=== PATIENT | female | born 1985 | race Caucasian/White ===

== ENCOUNTER 2025-02-15 14:27 | Outpatient (AMB) | payer OTHER, SELFPAY ==
--- NOTE | 2025-02-15 14:29 | A.OFFVIS_ITS ---
Vital Signs 02/15/25 14:39 Height 5 ft 3 in Weight 198 lb BMI 35.1 BP 156/98 H Blood Pressure Location Rt brachial Position Sitting Pulse 84 Pulse Source Pulse Oximeter Pulse Oximetry (%) 98 Oxygen Delivery Method Room Air Intake Visit Reasons: Gastroesophageal reflux disease (GERD) Intake Note: New pt for initial consult for GERD. Current PPI therapy. CC; C.O. GERD + Nausea. Pt states that she has been trialing PPI therapy which has been effective. However, she cannot ever come off of the medication without experiencing immediate reflux. 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 Patient was sent to us by her PCP for evaluation of her ongoing reflux. Patient started taking omeprazole and reports that her symptoms are better. However patient states that if she is not taking the medication she will have acid reflux. Patient reports occasional dyspepsia without dysphagia or odynophagia. Patient reports when severe reflux she is waking up with nausea. Patient reports certain food affect her more than others. Patient is trying not to eat late at night. [facility] Medical History (Updated 02/22/25 @ 11:49 by Keena Scruggs RN) Carpal tunnel syndrome Attention deficit Anxiety GERD (gastroesophageal reflux disease) Surgical History H/O section Review of Systems Const Denies weight gain and Denies weight loss ENT Reports no additional complaints, Denies dysphagia and Denies odynophagia Card Reports no additional complaints Resp Reports no additional complaints GI Denies abdominal pain, Denies belching, Denies melena, Denies bloating, Denies change in bowel habits, Denies dysphagia, Denies excessive flatus, Reports dyspepsia, Reports heartburn, Denies diarrhea, Denies loose stools, Denies nausea, Denies odynophagia and Denies vomiting Reports no additional complaints Musc Reports no additional complaints Neuro Reports no additional complaints Psych Reports no additional complaints Endo Reports no additional complaints Physical Exam Vital Signs: Last Vital Signs Pulse 84 02/15/25 14:39 BP 156/98 H 02/15/25 14:39 Pulse Ox 98 02/15/25 14:39 Oxygen Delivery Method Room Air 02/15/25 14:39 BMI result Body Mass Index 35.1 Const General: healthy appearing, no acute distress and well developed Nutritional Appearance: well nourished Orientation/consciousness: patient oriented x3 Resp Effort & Inspection: normal respiratory effort, able to speak in complete sentences, no tracheal deviation and symmetric chest movement Auscultation: clear to auscultation bilaterally Cardio Rate: regular rate GI Inspection: Yes normal to inspection and No distended Palpation (GI): Soft to palpation, not firm, nontender and No hepatosplenomegaly present Auscultation: normal bowel sounds General: Yes no CVA tenderness Back/Spine/Pelvis Back: no CVA tenderness Skin General skin exam: elasticity normal, turgor normal and dry skin Neuro General: patient oriented x3 Psych Appearance: grossly normal Mental Status: mental status grossly normal Assessment & Plan Assessment & Plan (1) GERD (gastroesophageal reflux disease): Code(s): K21.9 - Gastro-esophageal reflux disease without esophagitis Qualifiers: Esophagitis presence: esophagitis presence not specified Qualified Code(s): K21.9 - Gastro-esophageal reflux disease without esophagitis (2) Postprandial epigastric pain: Code(s): R10.13 - Epigastric pain (3) Postprandial abdominal bloating: Code(s): R14.0 - Abdominal distension (gaseous) (4) Nausea: Code(s): R11.0 - Nausea Plan Patient will be sent for upper endoscopy to rule out gastritis, esophagitis, duodenitis, gastric or peptic ulcer. Will check lipase, vitamin B12, folate, vitamin-D level. Will also check transglutaminase to rule out celiac. Will do breath test for H pylori in couple weeks. Patient will hold omeprazole will start her on famotidine. Patient is agreeable to current plan of care verbalizes understanding of instructions. She was given the opportunity to ask questions and all questions answered. Thank you for allowing me to participate in her care Orders: Orders Lipase 02/15/25 R10.9 - Unspecified abdominal pain Vitamin B12 and Folate 02/15/25 R19.7 - Diarrhea, unspecified Vitamin D 25-OH (D2 and D3) 02/15/25 E55.9 - Vitamin D deficiency, unspecified H Pylori Breath Test 02/15/25 K21.9 - Gastro-esophageal reflux disease without esophagitis Transglutaminase IgA 02/15/25 R10.9 - Unspecified abdominal pain Medications: New famotidine (Pepcid) 20 mg PO BID 30 tabs 0RF K29.70 - Gastritis, unspecified, without bleeding Coding Level of Care Code New Pt Level 3 (05270) Diagnoses Gastroesophageal reflux disease, unspecified whether esophagitis present K21.9 Esophagitis presence: esophagitis presence not specified Postprandial epigastric pain R10.13 Postprandial abdominal bloating R14.0 Nausea R11.0 Time Spent (min) 40 Comment 30 minutes spent with patient and additional 10 minutes spent reviewing her records
[2025-02-15 14:39] VITALS: BP 156/98; PULSE 84; O2SAT 98; BMI 35.1
== END 2025-02-15 15:04 | disposition home or self-care (01) ==
LOC: HO.HGI 14:28
PROVIDERS: PCP Family Medicine; Visit Provider Nurse Practitioner Family
DX: K21.9 Gastro-esophageal reflux disease without esophagitis (principal); R10.13 Epigastric pain; R14.0 Abdominal distension (gaseous); R11.0 Nausea
CPT/HCPCS: 99203

== ENCOUNTER → 2025-02-15 14:27 | Outpatient (BNVA) | payer OTHER, SELFPAY | PROVIDERS: PCP Family Medicine; Visit Provider Nurse Practitioner Family | DX: K21.9 Gastro-esophageal reflux disease without esophagitis (principal); R10.13 Epigastric pain; R14.0 Abdominal distension (gaseous); R11.0 Nausea; E55.9 Vitamin D deficiency, unspecified; R19.7 Diarrhea, unspecified | CPT/HCPCS: 99202 ==

== ENCOUNTER 2025-02-24 09:49 | Day surgery (SDC) | payer OTHER, SELFPAY ==
[2025-02-22 11:52] VITALS: BMI 36.3
[2025-02-24 10:54] LABS: UPreg QC Valid YES
[2025-02-24] MEDS: Lactated Ringers 1,000 ML 100 ML IVCONT (11:01)
[2025-02-24 11:02] VITALS: BP 130/91; PULSE 90; RESP 12; TEMP 36.7; O2SAT 98; BMI 33.9
--- NOTE | 2025-02-24 11:06 | HO.ANESPROP2 ---
Documented by User: Tonya Peterson NP 02/23/25 12:27 HPI - Anesthesia Eval Consult details Narrative: 39yo F for Upper Endoscopy [facility] Past Medical History Medical History (Updated 02/22/25 @ 11:49 by Keena Scruggs RN) Carpal tunnel syndrome Attention deficit Anxiety GERD (gastroesophageal reflux disease) Surgical History Surgical History H/O section Social History Social History Are you a primary post acute care nurse practitioner to a significant other at home: No Do you presently have visiting nurse or other home services: No Patient Tobacco Use Status: Never used Tobacco Use of substances other than those prescribed or required for medical reasons: No Advance Directives: No Advance Directives Information Provided: Yes Patient : No FDLMP: 01/27/2025 : No Poor oral hygiene: No Meds Allergies Allergy/AdvReac Type Severity Reaction Status Date / Time amoxicillin Allergy Severe Anaphylaxis Verified 02/24/25 10:48 acetaminophen (From Vicodin) AdvReac Unknown Vomiting Verified 02/24/25 10:48 hydrocodone (From Vicodin) AdvReac Unknown Vomiting Verified 02/24/25 10:48 Home Medications ?Medication ?Instructions ?Recorded ?Confirmed ?Last Taken ?Type omeprazole 20 mg capsule,delayed 20 mg PO DAILY 02/11/25 02/24/25 Unknown History release bupropion HCl 300 mg 24 hr tablet, 300 mg PO QAM 02/15/25 02/24/25 Unknown History extended release levonorgestrel-ethinyl estradiol 1 tab PO DAILY 02/15/25 02/24/25 Unknown History 0.1 mg-20 mcg tablet (Lessina) Exam Height,Weight and Vital Signs: Height 5 ft 3.39 in Weight 94 kg Assessment and Plan Assessment Anesthesia Assessment: Chart Reviewed Documented by User: Pao Rothman DO 02/24/25 11:09 [facility] Past Medical History Medical History (Updated 02/22/25 @ 11:49 by Keena Scruggs RN) Carpal tunnel syndrome Attention deficit Anxiety GERD (gastroesophageal reflux disease) Family History Family history of problems with anesthesia: No Surgical History Surgical History H/O section History of Problems with Anesthesia: No Social History Social History Are you a primary post acute care nurse practitioner to a significant other at home: No Do you presently have visiting nurse or other home services: No Patient Tobacco Use Status: Never used Tobacco Use of substances other than those prescribed or required for medical reasons: No Advance Directives: No Advance Directives Information Provided: Yes Patient : No FDLMP: 01/27/2025 : No Poor oral hygiene: No Meds Allergies Allergy/AdvReac Type Severity Reaction Status Date / Time amoxicillin Allergy Severe Anaphylaxis Verified 02/24/25 10:48 acetaminophen (From Vicodin) AdvReac Unknown Vomiting Verified 02/24/25 10:48 hydrocodone (From Vicodin) AdvReac Unknown Vomiting Verified 02/24/25 10:48 Home Medications ?Medication ?Instructions ?Recorded ?Confirmed ?Last Taken ?Type omeprazole 20 mg capsule,delayed 20 mg PO DAILY 02/11/25 02/24/25 Unknown History release bupropion HCl 300 mg 24 hr tablet, 300 mg PO QAM 02/15/25 02/24/25 Unknown History extended release levonorgestrel-ethinyl estradiol 1 tab PO DAILY 02/15/25 02/24/25 Unknown History 0.1 mg-20 mcg tablet (Lessina) Exam Exam Date and Time: 02/24/25 1108 Height,Weight and Vital Signs: Height 5 ft 3.39 in Weight 94 kg Vital Signs Temperature 98.0 F 02/24/25 11:02 Pulse Rate 90 02/24/25 11:02 Respiratory Rate 12 02/24/25 11:02 Blood Pressure 130/91 H 02/24/25 11:02 Pulse Oximetry 98 02/24/25 11:02 Temperature 98.0 F 02/24/25 11:02 Pulse Rate 90 02/24/25 11:02 Respiratory Rate 12 02/24/25 11:02 Blood Pressure 130/91 H 02/24/25 11:02 Pulse Oximetry 98 02/24/25 11:02 Airway Mallampati Class: II TM Dist: >3cm Neck ROM: Full Loose/Missing/Broken Teeth: No (patient denies any loose or broken teeth) Heart: S1S2 Lungs: CTAB Assessment and Plan Assessment Anesthesia Assessment: Anesthesia Plan Discussed and Chart Reviewed Final Anesthetic Review Family History of Problems with Anesthesia: No History of Problems with Anesthesia: No NPO: Yes ASA Class: II Final Preanesthetic Review: No Changes in Pt Med Stat, Meds/Allgs Chart Reviewed, Consent Obtained/Reviewed and Anes Risks/Benef Reviewed Patient Risk: Low Procedure Risk: Low Anesthetic Plan Anesthetic Plan: MAC: and Agree w/ Assess. and Plan Disposition: Standard PACU
--- NOTE | 2025-02-24 11:23 | MHC.SHP ---
Pre-Procedural Eval Section A - 24 Hr Update-Section A only Date of Service: 02/24/25 The patient is an INPATIENT: No The patient has been examined within 24 hours of the surgical procedure. The History & Physical has been completed within 30 days and I have reviewed it.: Yes Section B - Complete if H&P > 30 days Chief Complaint: gerd, Allergies: Allergies Allergy/AdvReac Type Severity Reaction Status Date / Time amoxicillin Allergy Severe Anaphylaxis Verified 02/24/25 10:48 acetaminophen (From Vicodin) AdvReac Unknown Vomiting Verified 02/24/25 10:48 hydrocodone (From Vicodin) AdvReac Unknown Vomiting Verified 02/24/25 10:48 Plan Diagnosis/Plan: Unchanged I have reviewed the history and physical and performed a pertinent physical examination on my patient. No changes have occurred unless specified. Time Spent With Patient Time: Total time managing care of this patient today ____ minutes.
--- NOTE | 2025-02-24 12:24 | P.OP_ITS ---
Operative Note Operative Note Date of Service: 02/24/25 Narrative: Procedure: Esophagogastroduodenoscopy Endoscopist: Alisa Castaneda MD Indication: Post prandial abd pain, GERD Anesthesia Provider: Dr Pao Rothman Anesthesia Type: MAC ?? EGD Procedure:?? The procedure, indications, preparation and potential complications were reviewed with the patient, who indicated understanding and gave written informed consent to proceed. A physical exam was performed. The endoscope was introduced through the mouth, and advanced to the second part of duodenum. The mucosa was carefully examined on slow withdrawal of the endoscope. The patient tolerated the procedure well. There were no immediate complications.? ? EGD Findings:? * Esophagus:? Normal mucosa noted in the entire esophagus. The Z line was at 34 cm and displaced by hiatal hernia with the diaphragmatic pinch at 37 cm. The Z-line was irregular up to 33 cm with small erosions measuring < 5 mm. GE junction biopsies were taken rule out Barretts esophagus. A tissue Cypher will also be sent if pathology positive for Nassar's esophagus. * Stomach:? Mild edema and scant heme in the antrum. Retroflexion was performed in the cardia that showed Hill grade 3 hiatal hernia. Cold forceps biopsies were taken from the gastric body and antrum. * Duodenum:? Edema, erythema and erosions noted in the duodenal bulb. Cold forceps biopsies were taken from duodenal bulb and second portion of the duodenum to rule out celiac sprue. ? EGD Impressions:? * Grade A esophagitis * Irregular Z line (biopsy, tissue cypher) * Hiatal hernia * Gastritis (biopsy) * Duodenitis (biopsy) ?? Recommendations:?? * Follow biopsy results. Our office will call or send a letter with results within 7-10 days. * Stop omeprazole and pepcid * Start rabeprazole 20 mg once daily * Consider barium swallow for evaluation of hiatal hernia * If H pylori +, patient will be prescribed eradication therapy followed by test of cure. * Avoid NSAIDs. Above has been reviewed with the patient.
[2025-02-24 12:27] VITALS: BP 132/91; PULSE 105; RESP 18; TEMP 36.7; O2SAT 96
[2025-02-24 12:35] VITALS: BP 138/95; PULSE 83; RESP 18; TEMP 36.6; O2SAT 97
[2025-02-24 12:47] VITALS: BP 130/84; PULSE 91; RESP 18; TEMP 36.4; O2SAT 97
== END 2025-02-24 13:21 | disposition home or self-care (01) ==
PROVIDERS: Anesthesiology; PCP Family Medicine; Visit Provider Internal Medicine
PROC: 0DJ08ZZ Inspection of Upper Intestinal Tract, Via Natural or Artificial Opening Endoscopic (ICD-10-PCS; CPT 43235; principal; 2025-02-24 12:00)
DX: K21.9 Gastro-esophageal reflux disease without esophagitis (principal); K20.80 Other esophagitis without bleeding; K22.9 Disease of esophagus, unspecified; K29.70 Gastritis, unspecified, without bleeding; K29.80 Duodenitis without bleeding; Q39.8 Other congenital malformations of esophagus; K44.9 Diaphragmatic hernia without obstruction or gangrene; E55.9 Vitamin D deficiency, unspecified; Z79.899 Other long term (current) drug therapy
CPT/HCPCS: 43239; 81025; 88305; 88313; 88342; J2003; J2704

== ENCOUNTER → 2025-02-24 09:49 | Outpatient (BNV) | payer OTHER, SELFPAY | PROVIDERS: PCP Family Medicine; Visit Provider Internal Medicine | DX: K21.00 Gastro-esophageal reflux disease with esophagitis, without bleeding (principal); R10.13 Epigastric pain; K22.89 Other specified disease of esophagus; K29.70 Gastritis, unspecified, without bleeding; K29.80 Duodenitis without bleeding | CPT/HCPCS: 43239 ==

== ENCOUNTER 2025-03-09 09:46 | Outpatient (AMB) | payer OTHER, SELFPAY ==
--- NOTE | 2025-03-09 09:50 | A.OFFVIS_ITS ---
Vital Signs 03/09/25 09:53 Height 5 ft 4 in Weight 196 lb BMI 33.6 BP 112/74 Blood Pressure Location Rt brachial Position Sitting Pulse 88 Pulse Source Pulse Oximeter Pulse Oximetry (%) 99 Oxygen Delivery Method Room Air Intake Visit Reasons: s/p EGD Leonel Intake Note: Est pt for mgmt of GERD. Review HP + EGD results. Review next EGD 06/2025. CC; Pt denies any GI sx or concerns at this time. Pt confirms that she is still taking her Rx as instructed w/o complication. Hospital Pharmacy Technician Required: No Accompanied by: Self / Same As Patient Allergies amoxicillin Allergy (Severe, Verified 03/09/25 09:50) Anaphylaxis acetaminophen (From Vicodin) Adverse Reaction (Unknown, Verified 03/09/25 09:50) Vomiting hydrocodone (From Vicodin) Adverse Reaction (Unknown, Verified 03/09/25 09:50) Vomiting HPI HPI s/p EGD Leonel: Details: LAST VISIT: GERD (gastroesophageal reflux disease) Postprandial epigastric pain Postprandial abdominal bloating Nausea Plan Patient will be sent for upper endoscopy to rule out gastritis, esophagitis, duodenitis, gastric or peptic ulcer. Will check lipase, vitamin B12, folate, vitamin-D level. Will also check transglutaminase to rule out celiac. Will do breath test for H pylori in couple weeks. Patient will hold omeprazole will start her on famotidine. Patient is agreeable to current plan of care verbalizes understanding of instructions. She was given the opportunity to ask questions and all questions answered. ? Thank you for allowing me to participate in her care Orders Lipase 02/15/25 R10.9 Vitamin B12 and Folate 02/15/25 R19.7 Vitamin D 25-OH (D2 and D3) 02/15/25 E55.9 H Pylori Breath Test 02/15/25 K21.9 Transglutaminase IgA 02/15/25 R10.9 New famotidine (Pepcid) 20 mg PO BID 30 tabs 0RF K29.70 UPPER ENDOSCOPY EGD Findings:? * Esophagus:? Normal mucosa noted in the entire esophagus. The Z line was at 34 cm and displaced by hiatal hernia with the diaphragmatic pinch at 37 cm. The Z-line was irregular up to 33 cm with small erosions measuring < 5 mm. GE junction biopsies were taken rule out Barretts esophagus. A tissue Cypher will also be sent if pathology positive for Nassar's esophagus. * Stomach:? Mild edema and scant heme in the antrum. Retroflexion was performed in the cardia that showed Hill grade 3 hiatal hernia. Cold forceps biopsies were taken from the gastric body and antrum. * Duodenum:? Edema, erythema and erosions noted in the duodenal bulb. Cold forceps biopsies were taken from duodenal bulb and second portion of the duodenum to rule out celiac sprue. ? EGD Impressions:? * Grade A esophagitis * Irregular Z line (biopsy, tissue cypher) * Hiatal hernia * Gastritis (biopsy) * Duodenitis (biopsy)?? Recommendations:?? * Follow biopsy results. Our office will call or send a letter with results within 7-10 days. * Stop omeprazole and pepcid * Start rabeprazole 20 mg once daily * Consider barium swallow for evaluation of hiatal hernia * If H pylori +, patient will be prescribed eradication therapy followed by test of cure. * Avoid NSAIDs. PATHOLOGY RESULTS Diagnosis A. Duodenum, biopsy: Duodenal mucosa within normal limits. B. Stomach, antrum, biopsy: Antral-type mucosa with mild chronic inactive inflammation; no Helicobacter organisms seen. C. Stomach, body, biopsy: Oxyntic mucosa with mild chronic inactive inflammation; no Helicobacter organisms seen. D. EG junction, biopsy: - Cardiac-type mucosa with moderate chronic inactive inflammation; no intestinal metaplasia seen. - Active esophagitis (maximum eosinophil count 6 per high powered field) TODAY'S VISIT: Reports she is doing well post procedure. Was started on robeprazole after procedure and is reporting reflux symptoms have significantly improved in comparison to omeprazole and famotidine. She is scheduled for Upper GI Barium Swallow in June to assess hiatal hernia.? Patient was scheduled for H. Pylori testing in early February but did not stop her PPI prior to test. Given EGD pathology was negative for Helicobacter organisms we do not need to reschedule breath test.? Today denies dysphagia, dyspepsia, odynophagia, heartburn, early satiety, epigastric pain, lower abdominal pain, belching, change in bowel habits, diarrhea, loose stools, constipation, bloating, melena, hematochezia, excessive flatus, ribbon like stools, nausea, vomiting, unintentional weight loss.? [facility] Medical History Carpal tunnel syndrome Attention deficit Anxiety GERD (gastroesophageal reflux disease) Surgical History H/O section Social History Are you a primary resident care manager rn to a significant other at home: No Do you presently have visiting nurse or other home services: No Patient Tobacco Use Status: Never used Tobacco Review of Systems Const Denies weight gain and Denies weight loss ENT Reports no additional complaints, Denies dysphagia and Denies odynophagia Card Reports no additional complaints Resp Reports no additional complaints GI Denies abdominal pain, Denies belching, Denies melena, Denies bloating, Denies change in bowel habits, Denies dysphagia, Denies excessive flatus, Denies dyspepsia, Denies heartburn, Denies diarrhea, Denies loose stools, Denies nausea, Denies odynophagia and Denies vomiting Reports no additional complaints Musc Reports no additional complaints Neuro Reports no additional complaints Psych Reports no additional complaints Endo Reports no additional complaints Physical Exam Vital Signs: BMI result Body Mass Index 33.6 Const General: healthy appearing, no acute distress and well developed Nutritional Appearance: well nourished Orientation/consciousness: patient oriented x3 Resp Effort & Inspection: normal respiratory effort, able to speak in complete sentences, no tracheal deviation and symmetric chest movement Auscultation: clear to auscultation bilaterally Cardio Rate: regular rate GI Inspection: Yes normal to inspection and No distended Palpation (GI): Soft to palpation, not firm, nontender and No hepatosplenomegaly present Auscultation: normal bowel sounds General: Yes no CVA tenderness Back/Spine/Pelvis Back: no CVA tenderness Skin General skin exam: elasticity normal, turgor normal and dry skin Neuro General: patient oriented x3 Psych Appearance: grossly normal Mental Status: mental status grossly normal Assessment & Plan Assessment & Plan (1) Gastroesophageal reflux disease: Code(s): K21.9 - Gastro-esophageal reflux disease without esophagitis Qualifiers: Esophagitis presence: esophagitis presence not specified Qualified Code(s): K21.9 - Gastro-esophageal reflux disease without esophagitis (2) Postprandial epigastric pain: Code(s): R10.13 - Epigastric pain (3) Postprandial abdominal bloating: Code(s): R14.0 - Abdominal distension (gaseous) (4) Nausea: Code(s): R11.0 - Nausea Plan Continue robeprazole PO daily.? Avoid dietary triggers and late night snacking. Staying upright for minimum 3 hours after meals discussed with patient. Patient will have upper GI barium swallow in June and will follow up as needed. She is agreeable to this plan and verbalizes understanding of instructions. She was given the opportunity to ask questions and all questions answered. Thank you for allowing me to participate in her care Coding Level of Care Code Est Pt Level 4 (70093) Complex EM visit Add On G2211 Diagnoses Gastroesophageal reflux disease, unspecified whether esophagitis present K21.9 Esophagitis presence: esophagitis presence not specified Postprandial epigastric pain R10.13 Postprandial abdominal bloating R14.0 Nausea R11.0 Time Spent (min) 35 Comment 25 minutes spent with patient and additional 10 minutes spent reviewing her records
[2025-03-09 09:53] VITALS: BP 112/74; PULSE 88; O2SAT 99; BMI 33.6
== END 2025-03-09 11:14 | disposition home or self-care (01) ==
PROVIDERS: PCP Family Medicine; Visit Provider Nurse Practitioner Family
DX: K21.9 Gastro-esophageal reflux disease without esophagitis (principal); R10.13 Epigastric pain; R14.0 Abdominal distension (gaseous); R11.0 Nausea
CPT/HCPCS: 99214; G2211